=== PATIENT | male | born 1975 | race Caucasian/White ===

== ENCOUNTER 2022-02-12 04:49 | Emergency (ER) | payer MEDICAID ==
[~2022-02-12] VITALS: Ht 182.9 cm; Wt 118.2 kg
[2022-02-12] MEDS ORDERED: LOPE2 PO (06:28)
[2022-02-12] MEDS ORDERED: ONDA-104 PO (06:28)
[2022-02-12 06:30] VITALS: BP 135/88
== END 2022-02-12 07:21 | disposition home or self-care (01) ==
LOC: EMS 04:50
DX: F11.23 Opioid dependence with withdrawal (principal); R19.7 Diarrhea, unspecified; M79.10 Myalgia, unspecified site; R61 Generalized hyperhidrosis; F41.9 Anxiety disorder, unspecified; R53.81 Other malaise; E78.00 Pure hypercholesterolemia, unspecified; I10 Essential (primary) hypertension; E66.9 Obesity, unspecified; F17.210 Nicotine dependence, cigarettes, uncomplicated; F12.90 Cannabis use, unspecified, uncomplicated; F15.90 Other stimulant use, unspecified, uncomplicated; F14.90 Cocaine use, unspecified, uncomplicated
CPT/HCPCS: 99283; Z7502